=== PATIENT | male | born 1950 | race Caucasian/White ===

== ENCOUNTER 2018-12-20 13:22 | Emergency (ER) | payer MEDICARE, BC, OTHER ==
[~2018-12-20] VITALS: Ht 185.4 cm; Wt 85.0 kg
[2018-12-20] MEDS ORDERED: [UNRECOGNIZED DRUG - OTHER] (13:31)
[2018-12-20] MEDS ORDERED: SPIR1CAP (13:31)
[2018-12-20] MEDS ORDERED: ATOR1TAB21 (13:31)
--- NOTE | 2018-12-20 14:04 | REP ---
Clinical: Foreign body. Technique: AP and lateral soft tissue neck radiographs. Findings: The airway is patent, midline and normal. The prevertebral soft tissues are grossly unremarkable and without swelling, radiodense foreign body, or subcutaneous emphysema. The osseous structures are intact and demonstrate age-related degenerative spondylosis. Impression: No obvious swelling or foreign body. Electronically Signed by Samuel Shen MD 12/20/2018 01:54 P
[2018-12-20 15:15] VITALS: BP 138/70
== END 2018-12-20 15:37 | disposition home or self-care (01) ==
LOC: M ED 13:22
DX: R09.89 Other specified symptoms and signs involving the circulatory and respiratory systems (principal); I10 Essential (primary) hypertension; E78.9 Disorder of lipoprotein metabolism, unspecified; G47.33 Obstructive sleep apnea (adult) (pediatric); F17.200 Nicotine dependence, unspecified, uncomplicated; Z88.1 Allergy status to other antibiotic agents; Z79.899 Other long term (current) drug therapy

== ENCOUNTER → 2021-04-01 | Outpatient (REF) | payer MEDICARE, BC, OTHER ==
[~2021-04-01] MED LIST: ATOR1TAB21; SPIR1CAP; [UNRECOGNIZED DRUG - OTHER]
== END ==
LOC: M LAB REF 13:57
PROVIDERS: ATTEND Physician Assistant
DX: C44.319 Basal cell carcinoma of skin of other parts of face (principal)
CPT/HCPCS: 11102; 88305; G0463

== ENCOUNTER → 2021-04-22 | Outpatient (REF) | payer MEDICARE, BC, OTHER | LOC: M LAB REF 09:12 | PROVIDERS: ATTEND Dermatology | DX: C44.319 Basal cell carcinoma of skin of other parts of face (principal) ==

== ENCOUNTER → 2022-04-09 | Outpatient (CLI) | payer MEDICARE, BC, OTHER | LOC: M RAD 10:01 | PROVIDERS: ATTEND Nurse Practitioner Family | DX: F17.210 Nicotine dependence, cigarettes, uncomplicated (principal) ==

== ENCOUNTER → 2022-09-23 | Outpatient (CLI) | payer MEDICARE, BC, OTHER | LOC: M PLAIMG 12:26 | PROVIDERS: ATTEND Nurse Practitioner Family | DX: R91.1 Solitary pulmonary nodule (principal) ==

== ENCOUNTER 2024-02-09 08:17 | Day surgery (SDC) | payer MEDICARE, BC ==
[~2024-02-09] VITALS: Ht 182.9 cm; Wt 78.5 kg
[~2024-02-09 08:17] MED LIST changes: +ANOR1AER INH; -ATOR1TAB21; +ATOR1TAB21 PO; +BAYE81TA10 PO; +FLON1SPR; +MIRA3350 PO; +OLME40TA PO; +OMEP40CA5 PO; +OXYB10TA23 PO; +THERTAB52 PO; +VENTAER INH
[2024-02-09] MEDS: NS 1,000 ML IV ONE (08:50)
[2024-02-09] MEDS ORDERED: fentaNYL 100 MCG/2 ML INJECTION As Ordered ONE (09:21)
[2024-02-09] MEDS ORDERED: propofoL 200 MG/20 ML VIAL As Ordered ONE (09:50)
[2024-02-09] MEDS ORDERED: LIDOCAINE 2% 100MG/5ML SDV (FOR ANES.) As Ordered ONE (09:50)
[2024-02-09 10:03] VITALS: TEMP 97.2
[2024-02-09 10:20] VITALS: BP 150/78; O2SAT 96
== END 2024-02-09 10:39 | disposition home or self-care (01) ==
LOC: M OPP 08:17
PROVIDERS: ATTEND Internal Medicine Gastroenterology
DX: D12.4 Benign neoplasm of descending colon (principal); K63.5 Polyp of colon; K64.8 Other hemorrhoids; K57.30 Diverticulosis of large intestine without perforation or abscess without bleeding; Z80.0 Family history of malignant neoplasm of digestive organs; R19.4 Change in bowel habit; K31.89 Other diseases of stomach and duodenum; K29.70 Gastritis, unspecified, without bleeding; R10.84 Generalized abdominal pain; R12 Heartburn; I10 Essential (primary) hypertension; Z79.02 Long term (current) use of antithrombotics/antiplatelets; Z79.51 Long term (current) use of inhaled steroids; Z79.82 Long term (current) use of aspirin; Z79.84 Long term (current) use of oral hypoglycemic drugs; Z88.1 Allergy status to other antibiotic agents; Z88.8 Allergy status to other drugs, medicaments and biological substances
CPT/HCPCS: 43239; 45385; 88305; J3010

== ENCOUNTER → 2024-02-14 | Outpatient (CLI) | payer MEDICARE, BC | LOC: M PLARAD 13:36 | PROVIDERS: ATTEND Internal Medicine Pulmonary Disease | DX: R91.8 Other nonspecific abnormal finding of lung field (principal) | CPT/HCPCS: 78815; A9552 ==

== ENCOUNTER → 2024-02-17 | Outpatient (CLI) | payer MEDICARE, BC | LOC: M CARPUL 10:29 | PROVIDERS: ATTEND Internal Medicine Pulmonary Disease | DX: R91.8 Other nonspecific abnormal finding of lung field (principal) ==